=== PATIENT | male | born 1955 | race Caucasian/White ===

== ENCOUNTER 2018-07-23 11:42 | Emergency (ER) | payer BC ==
[2018-07-23 12:37] LABS: URINE APPEARANCE TURBID; URINE BILIRUBIN NEGATIVE (NEGATIVE); URINE BLOOD LARGE (NEGATIVE); URINE COLOR RED
[2018-07-23 12:41] LABS: URINE NITRITE NEGATIVE (NEGATIVE); URINE PROTEIN 300 mg/dL (NEGATIVE)
[2018-07-23 12:42] LABS: URINE GLUCOSE (UA) NEGATIVE (NEGATIVE); URINE KETONE NEGATIVE (NEGATIVE); URINE LEUKOCYTE ESTERASE NEGATIVE (NEGATIVE)
[2018-07-23 12:43] LABS: URINE BACTERIA NONE SEEN; URINE EPITHELIAL CELLS 0 - 2 (FEW); URINE WBC 0 - 2 (0-2/hpf)
--- NOTE | 2018-07-23 13:33 | Emergency Department Record ---
History of Present Illness - General Chief complaint: Flank Pain Stated complaint: BLOOD IN URINE Time Seen by Provider: 07/23/18 13:26 Mode of Arrival: Ambulatory - History of Present Illness Initial comments: patient has blood in the urine with passing clots and he he had a biopsy of the kidney 4 days ago and the blood started yesterday. left flank pain. Urology Dr Sow at [facility] Onset/Timin -: Days(s) Location: Left flank Radiation: L flank Severity: Moderate Severity scale (1-10): 10 Quality: Aching, Sharp, Stabbing Consistency: Constant Improves with: None - Related Data Home Medications Medication Instructions Recorded Confirmed Last Taken Atorvastatin Calcium 40 mg PO DAILY 07/23/18 07/23/18 1 Day Ago ~07/22/18 Fluticasone/Salmeterol [Advair Hfa 8 gm IH BID 07/23/18 07/23/18 1 Day Ago 115-21 Mcg Inhaler] ~07/22/18 Ipratropium/Albuterol Sulfate 1 - 2 puff IH TID 07/23/18 07/23/18 1 Day Ago [Combivent] ~07/22/18 Tiotropium [place] [Spiriva 4 gm IH DAILY 07/23/18 07/23/18 Unknown Respimat] Allergies Allergy/AdvReac Type Severity Reaction Status Date / Time No Known Drug Allergies Allergy Verified 07/23/18 12:56 Travel Screening - Travel/Exposure Within Last 30 Days Have you traveled within the last 30 days?: No - Travel/Exposure Within Last Year Have you traveled outside the [place] in the last year?: No - Additonal Travel Details Have you been exposed to anyone with a communicable illness?: No - Travel Symptoms Symptom Screening: None Review of Systems Reviewed: No additional complaints except as noted below Constitutional: Reports: As per HPI. Denies: Chills, Fever, Malaise, Night sweats, Weakness, Weight change Eyes: Reports: As per HPI. Denies: Eye discharge, Eye pain, Photophobia, Vision change ENT: Reports: As per HPI. Denies: Congestion, Dental pain, Ear pain, Epistaxis , Hearing loss, Throat pain Respiratory: Reports: As per HPI. Denies: Cough, Dyspnea, Hemoptysis, Stridor, Wheezes Cardiovascular: Reports: As per HPI. Denies: Arrhythmia, Chest pain, Dyspnea on exertion, Edema, Murmurs, Orthopnea, Palpitations, Paroxysmal nocturnal dyspnea, Rheumatic Fever, Syncope Endocrine: Reports: As per HPI. Denies: Fatigue, Heat or cold intolerance, Polydipsia, Polyuria Gastrointestinal: Reports: As per HPI. Denies: Abdominal pain, Constipation, Diarrhea, Hematemesis, Hematochezia, Melena, Nausea, Vomiting Genitourinary: Reports: As per HPI, Hematuria. Denies: Dysuria, Frequency, Incontinence, Retention, Testicular pain, Testicular mass, Urgency Musculoskeletal: Reports: As per HPI. Denies: Arthralgia, Back pain, Gout, Joint swelling, Myalgia, Neck pain Skin: Reports: As per HPI. Denies: Bruising, Change in color, Change in hair/ nails, Lesions, Pruritus, Rash Neurological: Reports: As per HPI. Denies: Abnormal gait, Confusion, Headache, Numbness, Paresthesias, Seizure, Tingling, Tremors, Vertigo, Weakness Psychiatric: Reports: As per HPI. Denies: Anxiety, Auditory hallucinations, Depression, Homicidal thoughts, Suicidal thoughts, Visual hallucinations Hematological/Lymphatic: Reports: As per HPI. Denies: Anemia, Blood Clots, Easy bleeding, Easy bruising, Swollen glands Past Medical History - SOCIAL HISTORY Smoking Status: Former smoker Alcohol Use: Occasional Drug Use: Occasional Drug Use Detail:: Marijuana - RESPIRATORY Hx Respiratory Disorders: Yes Hx Bronchitis: Yes Hx COPD: Yes Hx Pneumonia: Yes Comment:: emphysema - CARDIOVASCULAR Hx Cardio Disorders: No - NEURO Hx Neuro Disorders: No - GI Hx GI Disorders: No - Comment:: kidney tumor - ENDOCRINE Hx Diabetes: No Hx Thyroid Disease: No - MUSCULOSKELETAL Hx Musculoskeletal Disorders: No - PSYCH Hx Psych Problems: No Family Medical History Any Significant Family History?: Yes Physical Exam - General General Appearance: Alert, Oriented x3, Cooperative, No acute distress - Head Head exam: Normal inspection - Eye Eye exam: Normal appearance, PERRL Pupils: Normal accommodation - ENT ENT exam: Normal exam, Mucous membranes moist, Normal external ear exam, Normal orophraynx, TM's normal bilaterally Ear exam: Normal external inspection. negative: External canal tenderness Nasal Exam: Normal inspection. negative: Discharge, Sinus tenderness Mouth exam: Normal external inspection, Tongue normal Teeth exam: Normal inspection. negative: Dental caries Throat exam: Normal inspection. negative: Tonsillar erythema, Tonsillar exudate - Neck Neck exam: Normal inspection, Full ROM. negative: Tenderness - Respiratory Respiratory exam: Normal lung sounds bilaterally. negative: Respiratory distress - Cardiovascular Cardiovascular Exam: Regular rate, Normal rhythm, Normal heart sounds - GI/Abdominal GI/Abdominal exam: Soft, Normal bowel sounds. negative: Tenderness - Rectal Rectal exam: Deferred - exam: Deferred - Extremities Extremities exam: Normal inspection, Full ROM, Normal capillary refill. negative: Tenderness - Back Back exam: Reports: Normal inspection, Full ROM. Denies: Muscle spasm, Rash noted, Tenderness - Neurological Neurological exam: Alert, Normal gait, Oriented X3, Reflexes normal - Psychiatric Psychiatric exam: Normal affect, Normal mood - Skin Skin exam: Dry, Intact, Normal color, Warm Course Vital Signs 07/23/18 07/23/18 12:27 12:30 Temperature 98.3 F 97.3 F L Pulse Rate 66 Pulse Rate [ 60 Left] Respiratory 20 18 Rate Blood Pressure 155/106 Blood Pressure 155/106 [Left Arm] Pulse Ox 93 L 98 - Reevaluation(s) Reevaluation #1: discussed case with dr. Sow and he wanted him transfered to ED at [facility] and he will admit them at [facility]. Discussed case with ED at [facility] Dr. Lui and will transfer by [facility] to [facility] ED. 07/23/18 15:07 Medical Decision Making - Data Complexity MDM Data: Labs Ordered and/or Reviewed (wbc 11,500, hg ), X-Ray Ordered and/or Reviewed - Lab Data Result diagrams: 07/23/18 12:25 07/23/18 12:25 Lab Results 07/23/18 Range/Units 12:20 Urine Color Red H Urine Appearance Turbid H Urine pH 8.0 (5.0-8.0) Ur Specific [place] 1.015 (1.002-1.030) Urine Protein 300 mg/dl H (NEGATIVE) Urine Glucose (UA) Negative (NEGATIVE) Urine Ketones Negative (NEGATIVE) Urine Blood Large H (NEGATIVE) Urine Nitrite Negative (NEGATIVE) Urine Bilirubin Negative (NEGATIVE) Urine Urobilinogen 2.0 H (0.20 - 1.00) E.U./dL Ur Leukocyte Esterase Negative (NEGATIVE) Urine RBC Too numerous to cnt (NONE SEEN) Urine WBC 0 - 2 (0-2/hpf) Ur Epithelial Cells 0 - 2 (FEW) Urine Bacteria None seen Disposition Clinical Impression: Left flank pain Hematuria Qualifiers: Hematuria type: gross Qualified Code(s): R31.0 - Gross hematuria Disposition: Acute Care Hospital Transfer Condition: (2) Stable Instructions: Flank Pain (ED) Forms: Patient Portal Access Time of Disposition: 15:11 Quality - Quality Measures Quality Measures: N/A - Blood Pressure Screening Does Patient Have Any of the Following: No Blood Pressure Classification: Hypertensive Reading Systolic Measurement: 155 Diastolic Measurement: 106 Screening for High Blood Pressure: < First Hypertensive BP, F/U Documented > [ G8950] First Hypertensive Follow-up Interventions: Referral to alternative/primary care provider.
[2018-07-23] MEDS: ONDANSETRON HCL IV 4 MG/2 ML VIAL IVP ONE (13:41)
[2018-07-23] MEDS: HYDROMORPHONE HCL 2 MG/ML VIAL IVP ONE ×2 (13:42→14:27)
[2018-07-23 14:03] LABS: BASO % 0.7 % (0-6); HEMATOCRIT 45.9 % (42.0-52.0); HEMOGLOBIN 16.2 gm/dl (14.0-18.0); LYMPH % 14.8 % (16-45); MEAN CELL VOLUME 89.8 fl (81-97); MEAN CORPUSCULAR HEMOGLOBIN 31.7 pg (27-33); MEAN CORPUSCULAR HGB CONC 35.3 g/dl (32-36); MEAN PLATELET VOLUME 10.4 fl (7.4-10.4); MONO % 6.5 % (0-9); PLATELET COUNT 253 K/uL (130-400); RED BLOOD COUNT 5.11 M/uL (4.40-5.70); RED CELL DISTRIBUTION WIDTH 12.7 % (11.5-14.5); WHITE BLOOD COUNT W/O DIFF 11.5 K/uL (4.2-12.2)
[2018-07-23 14:13] LABS: BLOOD UREA NITROGEN 13 mg/dL (8-23); CREATININE 0.9 mg/dL (0.7-1.2); EST GLOMERULAR FILTRATION RATE > 60 mL/min
[2018-07-23 14:15] LABS: GLUCOSE,RANDOM 119 mg/dL (74-109)
[2018-07-23 14:16] LABS: PARTIAL THROMBOPLASTIN TIME 23.7 SECONDS (24.5-39.1); PROTHROMBIN TIME (PATIENT) 10.2 SECONDS (9.5-12.1)
[2018-07-23] MEDS: KETOROLAC 30 MG/ML VIAL IVP ONE (15:15)
--- NOTE | 2018-07-24 14:53 | CT SCAN REPORT ---
EXAM: CT OF THE ABDOMEN AND PELVIS WITHOUT CONTRAST HISTORY: HEMATURIA, STATUS POST RENAL BIOPSY. TECHNIQUE: Noncontrast images are obtained from the dome of the diaphragm to the symphysis pubis. FINDINGS: The lung bases are clear except for the presence of centrilobular emphysema. The liver is unremarkable in size and shape without focal mass or biliary dilatation. The gallbladder is normal. The pancreas and spleen are within normal limits. Both adrenal glands and the right kidney are unremarkable. The left kidney demonstrates minimal perirenal infiltration. There is soft tissue prominence inferiorly. There is high density material within a minimally prominent renal pelvis, likely blood. No calculi are seen. There is no hydronephrosis. There is no evidence of significant perinephric inflammation or hematoma. The bowel demonstrates left colonic diverticula without diverticulitis. The bladder is unremarkable. There is no evidence of regional adenopathy. There is no free air or ascites. The bones demonstrate mild degenerative change without evidence of erosive or destructive changes. IMPRESSION: HEMATURIA, CONSISTENT WITH PRIOR BIOPSY. NO PERINEPHRIC PROCESS IS IDENTIFIED. CONSIDER ANGIOGRAPHY IF HEMATURIA PERSISTS. JOB NUMBER: [id number] [facility]
== END 2018-07-23 15:37 | disposition short-term general hospital (02) ==
LOC: ER 11:42
DX: R10.31 Right lower quadrant pain (principal); R31.0 Gross hematuria; J44.9 Chronic obstructive pulmonary disease, unspecified; Z87.891 Personal history of nicotine dependence
CPT/HCPCS: 99284 ×2; 96376; 96374; 96375; 85025; 85730; 85610; 80048; 81001; 74176; J1885; J2405; J1170

== ENCOUNTER 2018-07-25 21:52 | Emergency (ER) | payer BC ==
[2018-07-25] MEDS ORDERED: ONDANSETRON HCL IV 4 MG/2 ML VIAL IVP ONE (22:13)
[2018-07-25] MEDS ORDERED: KETOROLAC 30 MG/ML VIAL IVP ONE (22:13)
[2018-07-25] MEDS ORDERED: HYDROMORPHONE HCL 2 MG/ML VIAL IVP ONE (22:13)
[2018-07-25] MEDS ORDERED: 0.9 % SODIUM CHLORIDE 1000ML 1,000 ML IV SCH (22:15)
--- NOTE | 2018-07-25 22:21 | Emergency Department Record ---
History of Present Illness - General Chief complaint: Male Urogenital Problem Stated complaint: BLOOD IN URINE,FLANK PAIN Time Seen by Provider: 07/25/18 21:56 Source: Patient Mode of Arrival: Ambulatory Limitations: No limitations - History of Present Illness Initial comments: 62 yo male returns to ED for evaluation of hematuria and flank pain symptoms. Patient underwent left renal biopsy [address] Bauer, had been doing well with intermittent hematuria until Tuesday when he presented to ED for similar symptoms felt to be the result of ureteral obstruction. Patient was transferred to [facility] and admitted with subsequent passing of his ureteral clots. Patient reports similar symptoms this evening, attempted to call the on- call provider for Dr. Bauer without a return call. MD Complaint: Other Onset/Timin -: Hour(s) Location: Left flank Radiation: LLQ Severity: Severe Quality: Aching Consistency: Constant Improves with: None Worsens with: None Recent surgery Reports: Denies other symptoms - Related Data Previous Rx's Medication Instructions Recorded Hydrocodone/APAP 7.5/325Mg [[place] 1 each PO Q6H #10 tab 07/25/18 7.5MG/325Mg] Ondansetron [Zofran Odt] 4 mg PO Q6H PRN #15 tab.rapdis 07/25/18 Allergies Allergy/AdvReac Type Severity Reaction Status Date / Time No Known Drug Allergies Allergy Verified 07/23/18 12:56 Review of Systems Constitutional: Denies: Chills, Fever, Malaise, Night sweats Eyes: Denies: Eye discharge, Eye pain ENT: Denies: Congestion, Ear pain, Epistaxis Respiratory: Denies: Cough, Dyspnea Cardiovascular: Denies: Chest pain, Dyspnea on exertion Endocrine: Denies: Fatigue, Heat or cold intolerance Gastrointestinal: Reports: Abdominal pain, Nausea. Denies: Vomiting Genitourinary: Reports: Hematuria. Denies: Incontinence, Retention Musculoskeletal: Reports: Back pain. Denies: Arthralgia, Gout, Joint swelling Skin: Denies: Bruising, Change in color Neurological: Denies: Abnormal gait, Confusion, Headache, Seizure Psychiatric: Denies: Anxiety Hematological/Lymphatic: Denies: Anemia, Blood Clots Past Medical History - SOCIAL HISTORY Smoking Status: Former smoker Drug Use: Occasional Drug Use Detail:: Marijuana - RESPIRATORY Hx Respiratory Disorders: Yes Hx Bronchitis: Yes Hx COPD: Yes Hx Pneumonia: Yes Comment:: emphysema - CARDIOVASCULAR Hx Cardio Disorders: No - NEURO Hx Neuro Disorders: No - GI Hx GI Disorders: No - Comment:: kidney tumor - ENDOCRINE Hx Diabetes: No Hx Thyroid Disease: No - MUSCULOSKELETAL Hx Musculoskeletal Disorders: No - PSYCH Hx Psych Problems: No Physical Exam - General General Appearance: Alert, Oriented x3, Cooperative, Moderate distress (Appears uncomfortable on examination) Limitations: No limitations - Head Head exam: Atraumatic, Normocephalic, Normal inspection Head exam detail: negative: Abrasion, Contusion, Marques's sign, General tenderness, Hematoma, Laceration - Eye Eye exam: Normal appearance. negative: Conjunctival injection, Periorbital swelling, Periorbital tenderness, Scleral icterus - ENT Ear exam: negative: Auricular hematoma, Auricular trauma Nasal Exam: negative: Active bleeding, Discharge, Dried blood, Foreign body Mouth exam: negative: Drooling, Laceration, Muffled voice, Tongue elevation - Neck Neck exam: Normal inspection. negative: Meningismus, Tenderness - Respiratory Respiratory exam: Normal lung sounds bilaterally. negative: Rales, Respiratory distress, Rhonchi, Stridor - Cardiovascular Cardiovascular Exam: Regular rate, Normal rhythm, Normal heart sounds - GI/Abdominal GI/Abdominal exam: Soft. negative: Rebound, Rigid, Tenderness - Rectal Rectal exam: Deferred - exam: Deferred - Extremities Extremities exam: Normal inspection. negative: Pedal edema, Tenderness - Back Back exam: Reports: CVA tenderness (L). Denies: CVA tenderness (R) - Neurological Neurological exam: Alert, Normal gait, Oriented X3 - Psychiatric Psychiatric exam: Normal affect, Normal mood - Skin Skin exam: Normal color. negative: Abrasion Type of lesion: negative: abrasion Course - Reevaluation(s) Reevaluation #1: 07/25/18 22:19 Records from previous ED visit were reviewed. CT Abdomen and Pelvis 07/23/18: Hematuria c/w previous buiopsy. No ronaldo-nephric process is identified. Consider angiography if hematuria persists. Will initiate treatment with analgesia, obtain laboratory studies, and discuss with on-call provider for Dr. Bauer. Reevaluation #2: 07/25/18 22:36 Laboratory studies were reviewed: WBC 14.1 UA reviewed: 0-2 Epithelial cells 0-2 WBCs No bacteria Reevaluation #3: 07/25/18 22:44 Patient was reassessed and updated on all results, reports that his pain symptoms are down to a 1/10. Will continue to observe in ED for reoccurrence of his pain symptoms. Patient does have an appointment with his PCP in 12 hours, Dr. Bauer in 36 hours. Reevaluation #4: 07/25/18 23:30 Patient was reassessed, resting comfortably (sleeping) and reports that he would prefer to go home at this time. Will discharge home on Zofran and [place] as needed with PCP follow-up in 12 hours. Medical Decision Making - Lab Data Result diagrams: 07/25/18 22:15 07/25/18 22:15 Disposition Disposition: Discharge Clinical Impression: Post-op pain Disposition: Home, Self-Care Condition: (2) Stable Instructions: Pain Management After Surgery (GEN) Additional Instructions: Return to ED if your symptoms worsen or if you have any concerns. [place] and Zofran as directed. Follow-up with your family doctor in 12 hours as scheduled. Prescriptions: Hydrocodone/APAP 7.5/325Mg [[place] 7.5MG/325Mg] 1 each PO Q6H #10 tab Ondansetron [Zofran Odt] 4 mg PO Q6H PRN #15 tab.rapdis PRN Reason: Nausea/Vomiting Forms: Patient Portal Access Time of Disposition: 23:31 Quality - Quality Measures Quality Measures: N/A - Blood Pressure Screening Does Patient Have Any of the Following: No Blood Pressure Classification: Hypertensive Reading Systolic Measurement: 186 Diastolic Measurement: 126 Screening for High Blood Pressure: < First Hypertensive BP, F/U Documented > [ G8950] First Hypertensive Follow-up Interventions: Referral to alternative/primary care provider.
[2018-07-25 22:23] LABS: BASO % 0.4 % (0-6); EOS % 1.6 % (0-6); GRAN % 79.1 % (47-80); HEMOGLOBIN 14.2 gm/dl (14.0-18.0); MEAN CELL VOLUME 90.3 fl (81-97); MEAN CORPUSCULAR HEMOGLOBIN 31.3 pg (27-33); MEAN CORPUSCULAR HGB CONC 34.6 g/dl (32-36); MEAN PLATELET VOLUME 9.7 fl (7.4-10.4); MONO % 7.9 % (0-9); PLATELET COUNT 235 K/uL (130-400); RED BLOOD COUNT 4.54 M/uL (4.40-5.70); RED CELL DISTRIBUTION WIDTH 12.3 % (11.5-14.5); WHITE BLOOD COUNT W/O DIFF 14.1 K/uL (4.2-12.2)
[2018-07-25 22:24] LABS: URINE APPEARANCE SL CLOUDY; URINE BILIRUBIN SMALL (NEGATIVE); URINE BLOOD LARGE (NEGATIVE); URINE COLOR RED; URINE GLUCOSE (UA) NEGATIVE (NEGATIVE); URINE KETONE TRACE (NEGATIVE)
[2018-07-25 22:29] LABS: URINE NITRITE POSITIVE (NEGATIVE)
[2018-07-25 22:30] LABS: URINE BACTERIA NONE SEEN; URINE EPITHELIAL CELLS 0 - 2 (FEW); URINE LEUKOCYTE ESTERASE MODERATE (NEGATIVE); URINE WBC 0 - 2 (0-2/hpf)
[2018-07-25 22:32] LABS: BILIRUBIN,TOTAL 0.4 mg/dL (0.2-1.0); CREATININE 1.3 mg/dL (0.7-1.2); TOTAL PROTEIN 7.1 g/dL (6.6-8.7)
[2018-07-25 22:37] LABS: ALB/GLOB RATIO 1.3 (1.1-1.8)
[2018-07-25] MEDS ORDERED: ONDANSETRON 4 MG ODT TABLET SL ONE (23:32)
[2018-07-25] MEDS ORDERED: HYDROCODONE/APAP 7.5/325MG TABLET PO ONE (23:32)
== END 2018-07-25 23:49 | disposition home or self-care (01) ==
LOC: ER 21:52
DX: G89.18 Other acute postprocedural pain (principal); R10.32 Left lower quadrant pain; R31.0 Gross hematuria; Z87.891 Personal history of nicotine dependence
CPT/HCPCS: 80053; 81001; 85025; 96374; 96375; 99284; J1885; J2405; J7030